=== PATIENT | male | born 1990 | race Two or more races ===

== ENCOUNTER 2018-10-12 02:01 | Inpatient (IN) | payer OTHER ==
[~2018-10-12] VITALS: Ht 91.4 cm; Wt 6.0 kg
--- NOTE | 2018-10-12 02:15 | NUR ---
SE RECIBE PTE ALERTA Y ORIENTADO POR CHARLENE. PTE REFIERE PRESENTAR DOLOR ABDOMINAL Y NAUSEAS.
--- NOTE | 2018-10-12 02:47 | NUR ---
EVALUA PTE. SE ORIENTA A PTE SOBRE TX MEDICO. PTE REFIERE COMPRENDER. SE REALIZAN MUESTRAS DE LABORATORIO BAJO MEDIDAS ASEPTICAS. SE ADMINISTRAN MEDICAMENTOS SHRUTHI ORDEN MEDICA.
--- NOTE | 2018-10-12 07:00 | NUR ---
PACIENTE ALERTA Y ORIENTADO X3. EN ELVIN CON BARANDAS ELEVADAS. H/L PATENTE Y GALI DE EDEMA Y ERITEMA. PENDIENTE ENTREGA DE U/A Y U/C. PENDIENTE TERMINAR DE TOMARSE EL CONTRASTE PARA EL CT ABDOMEN Y PELVICO.
== END 2018-10-15 10:37 | disposition home or self-care (01) | DRG 392 ==
LOC: ER 02:01 → MEDI 12:17 → SEC-K 12:17 → MEDI 16:59 → MEDJ 16:59 → MEDI 10-15 10:37
PROVIDERS: ADMIT Surgery
PROC: BW21ZZZ Computerized Tomography (CT Scan) of Abdomen and Pelvis (ICD-10-PCS; principal; 2018-10-12)
PROC: BW21Y0Z Computerized Tomography (CT Scan) of Abdomen and Pelvis using Other Contrast, Unenhanced and Enhanced (ICD-10-PCS; 2018-10-13)
DX: R10.31 Right lower quadrant pain (principal)

== ENCOUNTER 2020-04-20 09:33 | Inpatient (IN) | payer OTHER ==
[~2020-04-20] VITALS: Ht 190.5 cm; Wt 62.1 kg
== END 2020-04-29 13:38 | disposition home or self-care (01) | DRG 339 ==
LOC: ER 09:33 → SURG 18:43
PROVIDERS: ADMIT Surgery; ATTEND Surgery
PROC: BW21ZZZ Computerized Tomography (CT Scan) of Abdomen and Pelvis (ICD-10-PCS; 2020-04-20)
PROC: BW21YZZ Computerized Tomography (CT Scan) of Abdomen and Pelvis using Other Contrast (ICD-10-PCS; 2020-04-21)
PROC: 0DTJ4ZZ Resection of Appendix, Percutaneous Endoscopic Approach (ICD-10-PCS; principal; 2020-04-21 18:00)
DX: K35.33 Acute appendicitis with perforation, localized peritonitis, and gangrene, with abscess (principal); K56.0 Paralytic ileus; Z20.828 Contact with and (suspected) exposure to other viral communicable diseases